=== PATIENT | male | born 1960 ===

== ENCOUNTER 2018-09-09 07:20 | Day surgery (SDC) | payer OTHER, BC ==
[2018-09-09] MEDS ORDERED: Lidocaine PF 2% (5 ml) Inj (For Cardiac Arrhy) ONE (08:58)
[2018-09-09] MEDS ORDERED: Iohexol 350mgl/ml 50 ML ONE (08:58)
[2018-09-09] MEDS ORDERED: Iodixanol 320 MG/ML 100 ML BOTTLE IV ONE (08:59)
[2018-09-09] MEDS ORDERED: Iodixanol 320 MG/ML 200 ML BOTTLE IV ONE (08:59)
[2018-09-09] MEDS ORDERED: Nitroglycerin 50mg in D5W 0 MG/0 ML BOTTLE IV ONE (09:03)
[2018-09-09 09:08] VITALS: BMI 23.4
[2018-09-09] MEDS ORDERED: Midazolam 2 MG/2 ML VIAL ONE (09:17)
--- NOTE | 2018-09-09 11:37 | CP.PCM.PN ---
<Eagle Bruce - Last Filed: 09/09/18 11:42> Subjective - Date & Time of Evaluation Date of Evaluation: 09/09/18 Time of Evaluation: 11:31 - Subjective Subjective: Eagle Bruce, PGY-1 Progress Note for ICU 58 y/o M with PMH CRI now ESRD likely 2/2 diabetic nephropathy 2/2 uncontrolled DM, newly diagnosed CAD, HTN, HLD, hyperuricemia, gout s/p PCI through R femoral artery with 1 ARIA placed in LAD today in [employer]. Vital signs: Afebrile, BP 138/77, HR 88, RR 15, SaO2 98% on 2 L NC Gen AAOx3 in NAD, resting comfortably in bed Cardio RRR +S1S1 no murmurs, rubs or gallops Lungs CTABL no wheezes, rales or rhonchi R femoral site with mild pain, dressing c/d/i, no signs of bleeding, good warmth and distal pulses b/l Plan: -Remain in Supine position -Tylenol to be provided for pain control -NC PRN -Continuous monitoring Patient is to be transferred back to [facility] if hemodynamically stable after monitoring in [facility] ICU. Eagle Bruce, PGY-1 Objective - Medications Medications: Current Medications Acetaminophen (Tylenol 325mg Tab) 650 mg PO Q4H PRN PRN Reason: Pain, Mild (1-3) <Neftali Albert - Last Filed: 09/09/18 14:00> Objective - Vital Signs/Intake and Output Vital Signs (last 24 hours): Temp Pulse Resp BP Pulse Ox 97.9 F 85 18 141/69 100 09/09/18 12:02 09/09/18 12:20 09/09/18 12:20 09/09/18 12:15 09/09/18 12:20 - Medications Medications: Current Medications Acetaminophen (Tylenol 325mg Tab) 650 mg PO Q4H PRN PRN Reason: Pain, Mild (1-3) Last Admin: 09/09/18 12:36 Dose: 650 mg Attending/Attestation - Attestation I have personally seen and examined this patient.: Yes I have fully participated in the care of the patient.: Yes I have reviewed all pertinent clinical information, including history, physical exam and plan: Yes
[2018-09-09 12:27] VITALS: O2SAT 100
[2018-09-09 12:29] VITALS: TEMP 97.9
[2018-09-09 14:22] VITALS: BP 126/73; PULSE 87; RESP 20
--- NOTE | 2018-09-09 19:31 | CARD ---
APPROVED REPORT Date of service: 09/09/2018 EKG Measurement Heart [id number] <Conclusion> Sinus rhythm with premature atrial complexes Otherwise normal ECG
== END 2018-09-09 16:45 | disposition short-term general hospital (02) ==
LOC: CATH 07:20 → ICU 10:28 → CATH 16:45
PROVIDERS: ATTEND Internal Medicine Cardiovascular Disease
DX: I21.4 Non-ST elevation (NSTEMI) myocardial infarction (principal); I25.10 Atherosclerotic heart disease of native coronary artery without angina pectoris; E78.5 Hyperlipidemia, unspecified; I12.0 Hypertensive chronic kidney disease with stage 5 chronic kidney disease or end stage renal disease; N18.6 End stage renal disease; I49.1 Atrial premature depolarization; E11.22 Type 2 diabetes mellitus with diabetic chronic kidney disease; E11.21 Type 2 diabetes mellitus with diabetic nephropathy; E11.65 Type 2 diabetes mellitus with hyperglycemia; M10.9 Gout, unspecified; Z99.2 Dependence on renal dialysis
CPT/HCPCS: 82948; 85175; 93005; 93454; 99152; 99153; C1760; C1769; C1874; C1887; C2629; C9601; J1644 ×2; J2250; J3010; J7040; Q9966; Q9967